=== PATIENT | female | born 1980 | race Caucasian/White ===

== ENCOUNTER 2025-06-11 12:50 | Day surgery (SDC) | payer BC ==
[~2025-06-11] VITALS: Ht 172.7 cm; Wt 128.3 kg
[2025-06-11] MEDS ORDERED: MOUNJARO7.5 MG/0.5 SQ (13:04)
[2025-06-11] MEDS ORDERED: INSULIN AS100 UNIT/7 SQ (13:05)
[2025-06-11] MEDS ORDERED: LOSA50 PO (13:06)
== END 2025-06-11 15:34 | disposition home or self-care (01) ==
LOC: ORSCSDS 12:50
PROVIDERS: Specialist
PROC: 0DJD8ZZ Inspection of Lower Intestinal Tract, Via Natural or Artificial Opening Endoscopic (ICD-10-PCS; principal; 2025-06-11 14:00)
DX: Z09 Encounter for follow-up examination after completed treatment for conditions other than malignant neoplasm (principal); Z15.09 Genetic susceptibility to other malignant neoplasm; K64.8 Other hemorrhoids; Z80.0 Family history of malignant neoplasm of digestive organs; Z85.41 Personal history of malignant neoplasm of cervix uteri; E10.9 Type 1 diabetes mellitus without complications; K76.0 Fatty (change of) liver, not elsewhere classified; J45.909 Unspecified asthma, uncomplicated; I10 Essential (primary) hypertension; K21.9 Gastro-esophageal reflux disease without esophagitis; E66.9 Obesity, unspecified; Z68.41 Body mass index [BMI] 40.0-44.9, adult; Z79.4 Long term (current) use of insulin; Z79.85 Long-term (current) use of injectable non-insulin antidiabetic drugs; Z79.899 Other long term (current) drug therapy
CPT/HCPCS: 82947; J2704; J7120